=== PATIENT | female | born 1960 | race Caucasian/White ===

== ENCOUNTER 2017-11-02 07:37 | Day surgery (SDC) | payer BC ==
[~2017-11-02] VITALS: Ht 165.1 cm; Wt 65.9 kg
[~2017-11-02 07:37] MED LIST: ACET325 PO; ALBU90OI INH; FLUSAL1005 IH
[2017-11-02] MEDS ORDERED: Estrogel93 GM (08:04)
[2017-11-02] MEDS ORDERED: IBUP400 PO (08:04)
[2017-11-02] MEDS ORDERED: PROG100 PO (08:05)
== END 2017-11-02 08:58 | disposition home or self-care (01) ==
LOC: ORSCSDS 07:37
PROVIDERS: Anesthesiology
PROC: 3E0R33Z Introduction of Anti-inflammatory into Spinal Canal, Percutaneous Approach (ICD-10-PCS; principal; 2017-11-02 08:45)
DX: M51.16 Intervertebral disc disorders with radiculopathy, lumbar region (principal); J45.909 Unspecified asthma, uncomplicated; Z79.899 Other long term (current) drug therapy
CPT/HCPCS: J1040

== ENCOUNTER 2017-12-11 08:22 | Day surgery (SDC) | payer BC ==
[~2017-12-11] VITALS: Ht 165.1 cm; Wt 63.7 kg
[~2017-12-11 08:22] MED LIST changes: +Estrogel93 GM; +IBUP400 PO; +PROG100 PO
== END 2017-12-11 10:59 | disposition home or self-care (01) ==
LOC: ORSCSDS 08:22
PROVIDERS: Surgery
PROC: 0DJD8ZZ Inspection of Lower Intestinal Tract, Via Natural or Artificial Opening Endoscopic (ICD-10-PCS; principal; 2017-12-11 09:45)
DX: Z12.11 Encounter for screening for malignant neoplasm of colon (principal); Z86.010 Personal history of colon polyps; K57.30 Diverticulosis of large intestine without perforation or abscess without bleeding
CPT/HCPCS: J7120

== ENCOUNTER → 2022-11-01 | Outpatient (CLI) | payer BC | END | disposition home or self-care (01) | LOC: LAB SHORT 15:11 → PLD 15:11 | DX: D48.4 Neoplasm of uncertain behavior of peritoneum (principal) | CPT/HCPCS: 88304 ==

== ENCOUNTER 2023-05-10 07:53 | Day surgery (SDC) | payer BC ==
[~2023-05-10] VITALS: Ht 165.1 cm; Wt 66.1 kg
[2023-05-10] MEDS ORDERED: ERGO400 (08:14)
[2023-05-10] MEDS ORDERED: Calcium Acetat667 MG (08:15)
[2023-05-10] MEDS ORDERED: MAGCHL64ER (08:15)
[2023-05-10 10:54] VITALS: BP 104/75
--- NOTE | 2023-05-10 10:57 | NUR ---
05/10/23 1057 Sarahy Arango LATE ENTRY PT'S IV DC'D PRIOR TO DISCHARGE WNL, CATH INTACT. PT TOLERATED IV DC WELL.
== END 2023-05-10 10:15 | disposition home or self-care (01) ==
LOC: ORSCSDS 07:53
PROVIDERS: Surgery
PROC: 0DJD8ZZ Inspection of Lower Intestinal Tract, Via Natural or Artificial Opening Endoscopic (ICD-10-PCS; principal; 2023-05-10 09:15)
DX: Z12.11 Encounter for screening for malignant neoplasm of colon (principal); K57.30 Diverticulosis of large intestine without perforation or abscess without bleeding; J45.909 Unspecified asthma, uncomplicated; E78.5 Hyperlipidemia, unspecified; Z79.899 Other long term (current) drug therapy
CPT/HCPCS: J2704; J7120

== ENCOUNTER → 2023-06-06 | Outpatient (CLI) | payer BC ==
[~2023-06-06] MED LIST changes: +Calcium Acetat667 MG; +ERGO400; +MAGCHL64ER
== END ==
LOC: LAB 12:00 → LAB SHORT 12:00
DX: N30.00 Acute cystitis without hematuria (principal)
CPT/HCPCS: 87086